=== PATIENT | male | born 1990 | race Caucasian/White ===

== ENCOUNTER 2020-07-24 13:51 | Emergency (ER) | payer BC, OTHER | END 2020-07-24 14:19 | LOC: JD.ED 13:51 | DX: Z53.21 Procedure and treatment not carried out due to patient leaving prior to being seen by health care provider (principal) ==

== ENCOUNTER 2021-06-21 15:29 | Emergency (ER) | payer BC ==
[2021-06-21 15:52] VITALS: BP 131/68; PULSE 77
--- NOTE | 2021-06-21 17:20 | EDM.PDOC ---
ED HPI GENERAL MEDICAL PROBLEM - General Chief Complaint: Back Pain or Injury Stated Complaint: BACK PAIN Time Seen by Provider: 06/21/21 15:47 Source of Information: Reports: Patient History Limitations: Reports: No Limitations - History of Present Illness INITIAL COMMENTS - FREE TEXT/NARRATIVE: The patient presents with low back pain. This has been going on for about 6 years but the past 2 weeks it has been worse. He did not injure it in anyway. He has no numbness or weakness, bowel or bladder problems. He says there is more pain to the left and the pain shoots down his leg. He has been to his chiropractor over the past week 4 times. His chiropractor sent him here. He has no numbness in his groin. Onset: Gradual Duration: Week(s): Location: Reports: Back Quality: Reports: Sharp Severity: Severe Improves with: Reports: Other (laying down) Worsens with: Reports: Movement Context: Denies: Trauma Associated Symptoms: Reports: No Other Symptoms Lower Back Pain Score (Numeric/FACES): 9 - Related Data Allergies Allergy/AdvReac Type Severity Reaction Status Date / Time No Known Allergies Allergy Verified 06/21/21 15:47 Home Meds: Home Meds Cyclobenzaprine [Flexeril] 10 mg PO TID PRN #20 tab 06/21/21 [Rx] Past Medical History HEENT History: Reports: Impaired Vision Cardiovascular History: Reports: None Respiratory History: Reports: None Gastrointestinal History: Reports: None Genitourinary History: Reports: None Musculoskeletal History: Reports: Back Pain, Chronic Neurological History: Reports: None Psychiatric History: Reports: None Endocrine/Metabolic History: Reports: None Hematologic History: Reports: None Oncologic (Cancer) History: Reports: None Dermatologic History: Reports: None - Infectious Disease History Infectious Disease History: Reports: Chicken Pox - Past Surgical History HEENT Surgical History: Reports: Oral Surgery Other HEENT Surgeries/Procedures: recent dental extraction Oncologic Surgical History: Reports: None Social & Family History - Family History Family Medical History: No Pertinent Family History - Tobacco Use Tobacco Use Status *Q: Current Every Day Tobacco User Years of Tobacco use: 12 Packs/Tins Daily: 1 - Caffeine Use Caffeine Use: Reports: Energy Drinks - Recreational Drug Use Recreational Drug Use: No - Living Situation & Occupation Occupation: Employed ED ROS GENERAL - Review of Systems Review Of Systems: See Below Constitutional: Reports: No Symptoms HEENT: Reports: No Symptoms Respiratory: Reports: No Symptoms Cardiovascular: Reports: No Symptoms Endocrine: Reports: No Symptoms GI/Abdominal: Reports: No Symptoms : Reports: No Symptoms Musculoskeletal: Reports: Back Pain ED EXAM,LOWER BACK PAIN/INJURY - Physical Exam Exam: See Below Exam Limited By: No Limitations General Appearance: Alert, No Apparent Distress Ears: Normal External Exam Nose: Normal Inspection Head: Atraumatic, Normocephalic Neck: Normal Inspection Respiratory/Chest: No Respiratory Distress, Lungs Clear, Normal Breath Sounds Cardiovascular: Regular Rate, Rhythm, No Edema, No Murmur GI/Abdominal: Soft, Non-Tender, No Organomegaly, No Mass Back Exam: Other (Mild pain upon palpation to the left lower back) Extremities: Normal Inspection Neurological: Alert, No Motor/Sensory Deficits, Oriented x 3 Course - Vital Signs Last Recorded V/S: Last Vital Signs Temp 97.7 F 06/21/21 15:50 Pulse 77 06/21/21 15:50 Resp 16 06/21/21 15:50 BP 131/68 06/21/21 15:50 Pulse Ox 100 06/21/21 15:50 - Orders/Labs/Meds Orders: Active Orders 24 hr Category Date Time Status Lumbar Spine 2 or 3V [CR] Stat Exams 06/21/21 16:13 Taken - Re-Assessments/Exams Free Text/Narrative Re-Assessment/Exam: 06/21/21 17:18 I ordered an x-ray of his back and it shows nothing acute. I will give him some flexeril and have him follow up with [facility] for an MRI. Departure - Departure Time of Disposition: 17:20 Disposition: Home, Self-Care 01 Condition: Good Clinical Impression: Low back pain Qualifiers: Chronicity: acute Back pain laterality: left Sciatica presence: with sciatica Sciatica laterality: sciatica of left side Qualified Code(s): M54.42 - Lumbago with sciatica, left side - Discharge Information *PRESCRIPTION DRUG MONITORING PROGRAM REVIEWED*: Not Applicable *COPY OF PRESCRIPTION DRUG MONITORING REPORT IN PATIENT RAJAN: Not Applicable Prescriptions: Cyclobenzaprine [Flexeril] 10 mg PO TID PRN #20 tab PRN Reason: Pain Referrals: PCP,None [Primary Care Provider] - [facility] [employer] [Nurse Practitioner] - 2 Days Additional Instructions: Take ibuprofen 600mg every 6 hours as needed for pain. You may also try the flexeril every 8 hours as needed for pain. Do not drive when taking the flexer il. Follow up with [facility] within the next couple of days. Please return if you are worse. Sepsis Event Note (ED) - Focused Exam Vital Signs: Vital Signs Temp Pulse Resp BP Pulse Ox 06/21/21 15:50 97.7 F 77 16 131/68 100 - My Orders Last 24 Hours: My Active Orders 06/21/21 16:13 Lumbar Spine 2 or 3V [CR] Stat - Assessment/Plan Last 24 Hours: My Active Orders 06/21/21 16:13 Lumbar Spine 2 or 3V [CR] Stat
--- NOTE | 2021-06-21 19:57 | CR ---
Lumbar spine: AP and lateral views of the lumbar spine were obtained as well as coned down lateral view centered to the lumbosacral junction. Comparison: No prior lumbar spine imaging is available. Moderate disc space narrowing is noted at L4-5. Other disc spaces are fairly well preserved. Vertebral body heights are maintained. Schmorl's node deformities are noted at T12-L1 and L1-2. Small calcification is seen posteriorly off the inferior endplate of L3. Minimal scattered anterior osteophytes are noted. Pedicles are intact. Visualized transverse and spinous processes are intact. Sacroiliac joints are within normal limits. Impression: 1. Degenerative change as noted above. 2. Nothing acute is seen. Diagnostic code #2
== END 2021-06-21 17:35 | disposition home or self-care (01) ==
LOC: JD.ED 15:29
DX: M54.42 Lumbago with sciatica, left side (principal); Z72.0 Tobacco use
CPT/HCPCS: 72100; 72100-26; 99283; 99283-25